=== PATIENT | female | born 1990 | race Caucasian/White ===

== ENCOUNTER 2017-05-02 19:05 | Emergency (ER) | payer MEDICAID, OTHER ==
[~2017-05-02] VITALS: Ht 160 cm; Wt 53.5 kg
[~2017-05-02 19:05] MED LIST: NITR-58 PO; PHEN-538 PO; PHEN-616 PO
[2017-05-02 19:13] VITALS: Ht 160 cm; Wt 53.5 kg
[2017-05-02 22:12] LABS: BASOPHILS % 0.2 % (0.0-2.0); EOSINOPHILS # 0.2 10^3/ul (0.0-0.5); EOSINOPHILS % 1.8 % (0.0-7.0); HEMOGLOBIN 12.2 g/dl (12.0-16.0); LYMPHOCYTES # 3.1 10^3/ul (0.8-2.9); LYMPHOCYTES % 37.2 % (15.0-51.0); MEAN CORPUSCULAR HGB CONC 33.9 g/dl (32.0-37.0); MEAN CORPUSCULAR VOLUME 88.7 fl (82.0-101.0); MONOCYTE # 0.6 10^3/ul (0.3-0.9); MONOCYTES % 6.6 % (0.0-11.0); NEUTROPHIL # 4.5 10^3/ul (1.6-7.5); PLATELET COUNT 231 10^3/UL (140-415); RED BLOOD COUNT 4.06 10^6/ul (4.20-5.40); RED CELL DISTRIBUTION WIDTH 12.1 % (11.5-14.5); WHITE BLOOD COUNT 8.3 10^3/ul (4.8-10.8)
--- NOTE | 2017-05-02 22:13 | ERD ---
ER Documentation Chief Complaint Date/Time DATE: 05/02/17 TIME: 22:11 Chief Complaint low back pain on L and bilateral groin pain HPI 27-year-old female presents here in emergency department for complaints of lower abdominal pain, lower back pain that started 4 days ago. Patient describes the pain as sharp pain, 6/10 scale, not better or worse with anything. Patient has history of kidney stones, feels the same way. Patient denies any hematuria or dysuria. Patient denies any fever chills. Patient denies any nausea or vomiting. ROS All systems reviewed and are negative except as per history of present illness. Medications Home Meds Active Scripts Polyethylene Glycol* (Miralax*) 17 Gm Powd.pack, 17 GM PO DAILY, #7 Prov:FRANCISCO TARIQ NP 05/02/17 Ibuprofen* (Motrin*) 600 Mg Tab, 600 MG PO Q6H Y for PAIN AND OR ELEVATED TEMP, #30 TAB Prov:FRANCISCO TARIQ NP 05/02/17 Tramadol HCl (Tramadol HCl) 50 Mg Tablet, 50 MG PO Q6, #20 TAB Prov:FRANCISCO TARIQ NP 05/02/17 Docusate Sodium* (Colace*) 100 Mg Capsule, 100 MG PO TID, #30 CAP Prov:FRANCISCO TARIQ NP 05/02/17 Phenazopyridine Hcl* (Pyridium*) 200 Mg Tab, 200 MG PO TID Y for DYSURIA, #6 TAB Prov:FRANCISCO TARIQ NP 06/09/15 Nitrofurantoin Monohyd Macrocr* (Macrobid*) 100 Mg Capsr, 100 MG PO BID for 7 Days, CAP Prov:FRANCISCO TARIQ NP 06/09/15 Phenazopyridine Hcl* (Phenazopyridine Hcl*) 200 Mg Tablet, 200 MG PO TID Y for DYSURIA for 2 Days, TAB Prov:JERRY CASE PA-C 03/08/15 Nitrofurantoin Monohyd Macrocr* (Macrobid*) 100 Mg Capsr, 100 MG PO BID for 7 Days, CAP Prov:JERRY CASE PA-C 03/08/15 Reported Medications [none] Unknown Strength No Conflict Check 06/09/15 Allergies Allergies: Coded Allergies: No Known Allergy (Unverified , 03/08/15) PMhx/Soc Medical and Surgical Hx: pt denies Surgical Hx Hx Miscellaneous Medical Probl: Yes (KIDNEY STONES) Hx Alcohol Use: Yes (social) Hx Substance Use: No Hx Tobacco Use: No FmHx Family History: No coronary disease, No diabetes, No other Physical Exam Vitals Vital Signs Date Time Temp Pulse Resp B/P Pulse Ox O2 Delivery O2 Flow Rate FiO2 05/02/17 19:13 99.2 90 18 129/71 98 Physical Exam GENERAL: The patient is well developed and appropriate for usual state of health, in no apparent distress. CHEST: Clear to auscultation bilaterally. There are no rales, wheezes or rhonchi. HEART: Regular rate and rhythm. No murmurs, clicks, rubs or gallops. No S3 or S4. ABDOMEN: Soft, nontender and nondistended. Good bowel sounds. No rebound or guarding. No gross peritonitis. No gross organomegaly or masses. No Soto sign or McBurney point tenderness. BACK: No midline or flank tenderness. EXTREMITIES: Equal pulses bilaterally. There is no peripheral clubbing, cyanosis or edema. No focal swelling or erythema. Full range of motion. Grossly neurovascularly intact. NEURO: Alert and oriented. Cranial nerves 2-12 intact. Motor strength in all 4 extremities with 5/5 strength. Sensation grossly intact. Normal speech and gait. SKIN: There is no apparent rash or petechia. The skin is warm and dry. HEMATOLOGIC AND LYMPHATIC: There is no evidence of excessive bruising or lymphedema. No gross cervical, axillary, or inguinal lymphadenopathy. Result Diagram: 05/02/17214905/02/172149 Results 24 hrs Laboratory Tests Test 05/02/17 21:50 White Blood Count 8.310^3/ul Red Blood Count 4.0610^6/ul Hemoglobin 12.2g/dl Hematocrit 36.0% Mean Corpuscular Volume 88.7fl Mean Corpuscular Hemoglobin 30.0pg Mean Corpuscular Hemoglobin Concent 33.9g/dl Red Cell Distribution Width 12.1% Platelet Count 91733^3/UL Mean Platelet Volume 12.0fl Neutrophils % 54.0% Lymphocytes % 37.2% Monocytes % 6.6% Eosinophils % 1.8% Basophils % 0.2% Nucleated Red Blood Cells % 0.0/100WBC Neutrophils # 4.510^3/ul Lymphocytes # 3.110^3/ul Monocytes # 0.610^3/ul Eosinophils # 0.210^3/ul Basophils # 0.010^3/ul Nucleated Red Blood Cells # 0.010^3/ul Urine Color YELLOW Urine Clarity CLEAR Urine pH 6.0 Urine Specific [place] 1.018 Urine Ketones NEGATIVEmg/dL Urine Nitrite NEGATIVEmg/dL Urine Bilirubin NEGATIVEmg/dL Urine Urobilinogen NEGATIVEmg/dL Urine Leukocyte Esterase NEGATIVELeu/ul Urine Hemoglobin NEGATIVEmg/dL Urine Glucose NEGATIVEmg/dL Urine Total Protein NEGATIVEmg/dl Urine Test NEGATIVE Sodium Level 138mmol/L Potassium Level 4.2mmol/L Chloride Level 103mmol/L Carbon Dioxide Level 30mmol/L Anion Gap 9 Blood Urea Nitrogen 12mg/dl Creatinine 0.72mg/dl Glucose Level 89mg/dl Calcium Level 9.8mg/dl Total Bilirubin 0.1mg/dl Direct Bilirubin 0.00mg/dl Indirect Bilirubin 0.1mg/dl Aspartate Amino Transf (AST/SGOT) 25IU/L Alanine Aminotransferase (ALT/SGPT) 26IU/L Alkaline Phosphatase 40IU/L Total Protein 7.2g/dl Albumin 4.1g/dl Globulin 3.10g/dl Albumin/Globulin Ratio 1.32 Lipase 168U/L PROCEDURE: CT ABDOMEN/PELVIS WITHOUT CONTRAST CLINICAL INDICATION: 27-year-old female with lower abdominal and back pain. The patient has a history of kidney stones. TECHNIQUE: The study was performed utilizing a GE [employer] VCT 64-slice CT scanner. Direct axial sections were obtained through the abdomen and pelvis without the use of intravenous contrast material. Sagittal and coronal reformations were obtained. One or more of the following dose reduction techniques were utilized: automated exposure control, adjustment of the mA and/ or kV according to patient's size or use of iterative reconstruction technique. The images were reviewed on a PACS workstation. CTD/vol = 7.4 mGy; Total Exam DLP = 341.8 mGy-cm. COMPARISON: None. FINDINGS: There is minimal dependent pericardial effusion.. There is no evidence for significant pleural effusion. The liver has a normal size and contour without focal areas of abnormal density. No intrahepatic nor extrahepatic biliary ductal dilatation is seen. The gallbladder is collapsed but without evidence for calcified stones, wall thickening or pericholecystic fluid. The pancreas is without areas of abnormal attenuation. The spleen is identified and has a normal size without abnormal density. The adrenal glands are unremarkable. The kidneys are without abnormal density. No hydroureteronephrosis nor nephroureterolithiasis is evident. The urinary bladder contains urine. There is moderate retained stool identified throughout the colon without gross bowel obstruction. The appendix is visualized and is without abnormal thickening or surrounding inflammatory reaction. The uterus is retroverted. Nabothian cysts are seen within the endocervical region. Phleboliths are identified within the pelvis. There is minimal left adnexal free fluid. The aortoiliac vessels are without aneurysmal dilatation. 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 IMPRESSION: 1. No CT evidence for obstructive uropathy or renal calculi. 2. Moderate retained stool throughout the colon consistent with constipation without gross bowel obstruction. 3. No CT evidence for appendicitis. 4. Minimal left adnexal free fluid. 5. Left L5 pars interarticularis defect. .Artur Platt MD, MD Date Time Electronically viewed and signed by .Artur Platt MD, MD on 05/02/2017 23:21 .M/ CC: FRANCISCO TARIQ PROJECTION TECHNICIAN Procedures/MDM Medical Decision Making: Patient symptoms of abdominal pain nonspecific at this time. patient does not have any urinary tract infection. back pain may be from musculoskeletal pain. There is low suspicion for abdominal emergencies at this time. Patients abdominal exam is normal at this time. Patients radiology exam does not show any abdominal emergencies at this time. There is low suspicion for appendicitis, cholecystitis, abdominal aortic aneurysms or peritonitis at this time. There is low suspicion for sepsis. Patient appears well and is hemodynamically stable. Disposition: Home. Condition: Stable Prescription tramadol, ibuprofen, miralax, colace Instructions: Patient is advised to take medications as prescribed. Patient is advised to rest, increase fluid intake and do brat diet for next 1-2 days and progress as tolerated. Patient is advised that if symptoms are worse, severe abdominal pain, uncontrolled vomiting, high fever, severe flank pain, worst signs and symptoms, to return to the emergency department immediately. Otherwise, patient can follow up with primary care doctor in 5-7 days. Disclaimer: Inadvertent spelling and grammatical errors are likely due to EHR/ dictation software use and do not reflect on the overall quality of patient care. Also, please note that the electronic time recorded on this note does not necessarily reflect the actual time of the patient encounter. Departure Diagnosis: Primary Impression: Back pain Back pain location: low back pain Chronicity: acute Back pain laterality: bilateral Sciatica presence: without sciatica Qualified Code: M54.5 - Acute bilateral low back pain without sciatica Additional Impressions: Abdominal pain Abdominal location: lower abdomen, unspecified Qualified Code: R10.30 - Lower abdominal pain Constipation Constipation type: unspecified constipation type Qualified Code: K59.00 - Constipation, unspecified constipation type Condition: Stable Patient Instructions: Abdominal Pain, Back Pain (Acute Or Chronic), Constipation (Adult) Additional Instructions: Patient is advised to take medications as prescribed. Patient is advised to rest , increase fluid intake and do brat diet for next 1-2 days and progress as tolerated. Patient is advised that if symptoms are worse, severe abdominal pain , uncontrolled vomiting, high fever, severe flank pain, worst signs and symptoms , to return to the emergency department immediately. Otherwise, patient can follow up with primary care doctor in 5-7 days. FRANCISCO TARIQ NP May 02, 2017 22:12
[2017-05-02 22:33] LABS: ALBUMIN 4.1 g/dl (3.3-4.9); ALBUMIN/GLOBULIN RATIO 1.32; BILIRUBIN,INDIRECT 0.1 mg/dl (0-1.1); BILIRUBIN,TOTAL 0.1 mg/dl (0.2-1.3); CALCIUM 9.8 mg/dl (8.4-10.2); CREATININE 0.72 mg/dl (0.44-1.00); POTASSIUM 4.2 mmol/L (3.5-5.1); TOTAL PROTEIN 7.2 g/dl (6.1-8.1)
[2017-05-02 22:34] LABS: ADD UMIC NO; UR ASCORBIC ACID NEGATIVE (NEGATIVE); UR BILIRUBIN (Dip) NEGATIVE (NEGATIVE); UR BLOOD (Dip) NEGATIVE (NEGATIVE); UR CLARITY CLEAR (CLEAR); UR COLOR YELLOW (YELLOW); UR GLUCOSE (Dip) NEGATIVE (NEGATIVE); UR KETONES (Dip) NEGATIVE (NEGATIVE); UR LEUKOCYTE ESTERASE (Dip) NEGATIVE Leu/ul (NEGATIVE); UR NITRITE (Dip) NEGATIVE (NEGATIVE); UR SPECIFIC GRAVITY (Dip) 1.018 (1.003-1.030); UR TOTAL PROTEIN (Dip) NEGATIVE (NEGATIVE); UR UROBILINOGEN (Dip) NEGATIVE (NEGATIVE)
--- NOTE | 2017-05-02 23:22 | RADRPT ---
PROCEDURE: CT ABDOMEN/PELVIS WITHOUT CONTRAST CLINICAL INDICATION: 27-year-old female with lower abdominal and back pain. The patient has a hist ory of kidney stones. TECHNIQUE: The study was performed utilizing a GE [employer] VCT 64-slice CT scanner. Direct axia l sections were obtained through the abdomen and pelvis without the use of intravenous contrast mate rial. Sagittal and coronal reformations were obtained. One or more of the following dose reduction t echniques were utilized: automated exposure control, adjustment of the mA and/or kV according to pat ient's size or use of iterative reconstruction technique. [facility] CTD/vol = 7.4 mGy; Total Exam DLP = 341.8 mGy-cm. COMPARISON: None. FINDINGS: There is minimal dependent pericardial effusion.. There is no evidence for significant pleural effu ayse. The liver has a normal size and contour without focal areas of abnormal density. No intrahepa tic nor extrahepatic biliary ductal dilatation is seen. The gallbladder is collapsed but without earlene dence for calcified stones, wall thickening or pericholecystic fluid. The pancreas is without areas of abnormal attenuation. The spleen is identified and has a normal size without abnormal density. T he adrenal glands are unremarkable. The kidneys are without abnormal density. No hydroureteronephros is nor nephroureterolithiasis is evident. The urinary bladder contains urine. There is moderate sarah ined stool identified throughout the colon without gross bowel obstruction. The appendix is visuali zed and is without abnormal thickening or surrounding inflammatory reaction. The uterus is retrovert ed. Nabothian cysts are seen within the endocervical region. Phleboliths are identified within the pelvis. There is minimal left adnexal free fluid. The aortoiliac vessels are without aneurysmal dila tation. 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 IMPRESSION: 1. No CT evidence for obstructive uropathy or renal calculi. 2. Moderate retained stool throughout the colon consistent with constipation without gross bowel ob struction. 3. No CT evidence for appendicitis. 4. Minimal left adnexal free fluid. 5. Left L5 pars interarticularis defect. .Artur Platt MD, MD Date Time Electronically viewed and signed by .Artur Platt MD, on 05/02/2017 23:21 .M/
[2017-05-02] MEDS ORDERED: TRAM50TA2 PO (23:38)
[2017-05-02] MEDS ORDERED: POLY17PO6 PO (23:38)
[2017-05-02] MEDS ORDERED: DOCU-144 PO (23:38)
[2017-05-02] MEDS ORDERED: IBUP-1542 PO (23:38)
[2017-05-02 23:48] VITALS: BP 134/60; PULSE 67; RESP 16
== END 2017-05-02 23:49 | disposition home or self-care (01) ==
LOC: FTE 19:05
DX: M54.5 Low back pain (principal); R10.30 Lower abdominal pain, unspecified; K59.00 Constipation, unspecified
CPT/HCPCS: 36415; 74176; 80053; 81003; 83690; 84703; 85025; Z7502